=== PATIENT | female | born 1945 | race African-American/Black ===

== ENCOUNTER 2024-10-23 14:03 | Inpatient (IN) | payer MEDICARE, MEDICAID ==
[~2024-10-23] VITALS: Ht 167.6 cm; Wt 60.8 kg
[~2024-10-23 14:03] MED LIST: ACET167L14 PO; ALBU18HF2 IH; AMLO10TA80 PO; APIX5TAB PO; ATOR-2 PO; CLOP-31 MT; DEXT30SU17 PO; FLUT1DIS6 INH; FURO-151 MT; LISI40TA13 PO; LURA60TA PO; SPIR25TA PO
[2024-10-23 16:57] LABS: BASOPHILS % 0.7 % (0.0-2.0); EOSINOPHILS % 1.6 % (0.0-5.0); HEMATOCRIT. 41.9 % (36.0-48.0); HEMOGLOBIN. 13.5 g/dL (12.0-16.0); LYMPHOCYTES % 14.3 % (20.0-50.0); MEAN CORPUSCULAR HEMOGLOBIN 28.1 pg (28.0-32.0); MEAN CORPUSCULAR HGB CONC 32.3 g/dL (31.0-37.0); MEAN CORPUSCULAR VOLUME 87.1 fL (81.0-99.0); MEAN PLATELET VOLUME 9.3 fl (7.4-10.4); MONOCYTES % 7.5 % (2.0-8.0); NEUTROPHILS % 75.9 % (40.0-76.0); PLATELET 182 x1000/uL (130-400); RED BLOOD CELL COUNT 4.81 mill/uL (4.2-5.4); RED CELL DISTRIBUTION WIDTH 15.3 % (11.6-14.6); WHITE BLOOD COUNT 5.8 x1000/uL (4.5-11.0)
[2024-10-23 17:01] LABS: CHLORIDE 112 mEq/L (98-107); POTASSIUM 3.6 mEq/L (3.5-5.1); SODIUM 144 mEq/L (136-145)
[2024-10-23 17:02] LABS: CARBON DIOXIDE 24 mEq/L (21-32)
[2024-10-23 17:03] LABS: CALCIUM 9.8 mg/dL (8.7-10.4)
[2024-10-23 17:07] LABS: CREATININE 0.9 mg/dL (0.6-1.0); GLUCOSE 111 mg/dL (70-105); UREA NITROGEN BLOOD 23 mg/dL (9-23)
[2024-10-23 17:15] LABS: TROPONIN I HIGH SENSITIVITY 48 ng/L (3.0-34)
[2024-10-23] MEDS: FUROSEMIDE 40MG/4ML VIAL IVP ONE (17:53)
[2024-10-23] MEDS ORDERED: IPRATROPIUM/ALBUTEROL 0.5-3(2.5)MG/3ML NEB HHN PRN (21:15)
[2024-10-23] MEDS ORDERED: GUAIFENESIN 200MG/10ML SUGAR FREE UDC PO PRN (21:30)
[2024-10-23] MEDS ORDERED: DOCUSATE SODIUM 100MG CAPSULE PO PRN (21:30)
[2024-10-23] MEDS ORDERED: ONDANSETRON HCL 4MG/2ML INJ IV PRN (21:30)
[2024-10-23] MEDS ORDERED: MAGNESIUM/ALUMINUM HYDROXIDE/SIMETHICONE 30ML UDC PO PRN (21:30)
[2024-10-23 21:40] VITALS: BP 174/102; PULSE 78; RESP 18; TEMP 36.2512
[2024-10-23] MEDS: HYDRALAZINE 20MG/ML VIAL IV PRN (22:17)
[2024-10-23] MEDS: MELATONIN 3MG TABLET PO PRN (23:53)
[2024-10-23] MEDS: ACETAMINOPHEN 325MG TABLET PO PRN (23:53)
[2024-10-24] VITALS (9 sets, daily range): BP systolic 144–196; BP diastolic 61–115; PULSE 75–109; RESP 18–22; TEMP 36.44736–36.72516; O2SAT 96–100
[2024-10-24] MEDS: IPRATROPIUM/ALBUTEROL 0.5-3(2.5)MG/3ML NEB HHN SCH (00:45)
[2024-10-24 01:50] LABS: CREATINE KINASE MB FRACTION 1.8 ng/mL (0.5-3.6)
[2024-10-24] MEDS: HYDRALAZINE 20MG/ML VIAL IV NR (02:20)
[2024-10-24] MEDS: PANTOPRAZOLE 40MG DR TABLET PO SCH (06:28)
[2024-10-24 07:12] LABS: CARBON DIOXIDE 26 mEq/L (21-32); CHLORIDE 109 mEq/L (98-107); POTASSIUM 3.2 mEq/L (3.5-5.1); SODIUM 144 mEq/L (136-145)
[2024-10-24 07:13] LABS: CALCIUM 9.8 mg/dL (8.7-10.4)
[2024-10-24 07:15] LABS: CREATINE KINASE MB FRACTION 1.9 ng/mL (0.5-3.6)
[2024-10-24 07:18] LABS: CREATININE 0.9 mg/dL (0.6-1.0); GLUCOSE 109 mg/dL (70-105); TRIGLYCERIDE 65 mg/dL (0-150); UREA NITROGEN BLOOD 17 mg/dL (9-23)
[2024-10-24 07:19] LABS: LDL CHOLESTEROL 99 mg/dL (5-100)
[2024-10-24 07:20] LABS: CHOLESTEROL 152 mg/dL (<200); HDL CHOLESTEROL 36 mg/dL (>65); PHOSPHORUS 3.8 mg/dL (2.5-4.9); T4 FREE 1.65 ng/dL (0.89-1.76); THYROID STIMULATING HORMONE 1.52 uIU/mL (0.55-4.78)
[2024-10-24 07:21] LABS: BASOPHILS % 0.6 % (0.0-2.0); EOSINOPHILS % 1.2 % (0.0-5.0); HEMATOCRIT. 43.8 % (36.0-48.0); HEMOGLOBIN. 14.3 g/dL (12.0-16.0); LYMPHOCYTES % 9.8 % (20.0-50.0); MEAN CORPUSCULAR HEMOGLOBIN 28.3 pg (28.0-32.0); MEAN CORPUSCULAR HGB CONC 32.6 g/dL (31.0-37.0); MEAN CORPUSCULAR VOLUME 86.9 fL (81.0-99.0); MEAN PLATELET VOLUME 9.7 fl (7.4-10.4); MONOCYTES % 6.3 % (2.0-8.0); NEUTROPHILS % 82.1 % (40.0-76.0); PLATELET 186 x1000/uL (130-400); RED BLOOD CELL COUNT 5.04 mill/uL (4.2-5.4); RED CELL DISTRIBUTION WIDTH 15.4 % (11.6-14.6); WHITE BLOOD COUNT 6.9 x1000/uL (4.5-11.0)
[2024-10-24] MEDS: SPIRONOLACTONE 25MG TABLET PO SCH (09:23)
[2024-10-24] MEDS: APIXABAN 5 MG TABLET PO SCH (09:24)
[2024-10-24] MEDS: CLOPIDOGREL 75MG TABLET PO SCH (09:24)
[2024-10-24] MEDS: LISINOPRIL 40MG TABLET PO SCH (09:25)
[2024-10-24 11:20] LABS: CLARITY URINE CLEAR (CLEAR); COLOR URINE YELLOW (YELLOW); GLUCOSE URINE NEGATIVE (NEGATIVE); KETONES URINE NEGATIVE (NEGATIVE); LEUKOCYTE ESTERASE URINE TRACE (NEGATIVE); NITRITE URINE NEGATIVE (NEGATIVE); OCCULT BLOOD URINE NEGATIVE (NEGATIVE); PROTEIN URINE 2+ (NEGATIVE); SPECIFIC GRAVITY URINE 1.014 (1.005-1.030)
[2024-10-24 11:36] LABS: *AMPHETAMINES SCREEN URINE NEGATIVE (NEGATIVE); *BARBITURATES SCREEN URINE NEGATIVE (NEGATIVE); *BENZODIAZEPINES SCREEN URINE NEGATIVE (NEGATIVE); *COCAINE SCREEN URINE NEGATIVE (NEGATIVE); CANNABINOID URINE SCREEN NEGATIVE (NEGATIVE); ECSTASY MDMA SCREEN URINE NEGATIVE (NEGATIVE); METHADONE URINE SCREEN NEGATIVE (NEGATIVE); OPIATES URINE SCREEN NEGATIVE (NEGATIVE); PHENCYCLIDINE URINE SCREEN NEGATIVE (NEGATIVE); RBC URINE 0-2 /hpf (0-2); SQUAMOUS EPITHELIAL CELL URINE 2+ /lpf (RARE/1+)
[2024-10-24 11:37] LABS: BACTERIA URINE NONE SEEN; YEAST URINE NONE SEEN
[2024-10-24] MEDS: FUROSEMIDE 40MG/4ML VIAL IVP SCH (13:26)
[2024-10-24 17:08] LABS: CREATINE KINASE MB FRACTION 1.7 ng/mL (0.5-3.6)
[2024-10-24] MEDS: ATORVASTATIN CALCIUM 40MG TABLET PO SCH (21:37)
[2024-10-25] VITALS: BP 137/80; PULSE 81; RESP 18; TEMP 27.2244; O2SAT 99
[2024-10-25 04:00] VITALS: BP 119/68; PULSE 80; RESP 19; TEMP 36.72516; O2SAT 100
[2024-10-25 08:00] VITALS: BP 159/78; PULSE 89; RESP 16; TEMP 36.33624; O2SAT 95
[2024-10-25 09:00] VITALS: PULSE 88; RESP 20; O2SAT 96
[2024-10-25 10:23] VITALS: BP 152/68; PULSE 79; TEMP 95.2; O2SAT 100
== END 2024-10-25 11:00 | disposition home or self-care (01) | DRG 280 ==
LOC: ER 15:45 → EDBEDREQ 17:27 → 7EST 23:16
PROVIDERS: ADMIT Internal Medicine; ATTEND Internal Medicine
DX: I11.0 Hypertensive heart disease with heart failure (principal); I50.23 Acute on chronic systolic (congestive) heart failure; I21.A1 Myocardial infarction type 2; J44.1 Chronic obstructive pulmonary disease with (acute) exacerbation; I16.1 Hypertensive emergency; E78.9 Disorder of lipoprotein metabolism, unspecified; E11.9 Type 2 diabetes mellitus without complications; E78.5 Hyperlipidemia, unspecified; I48.91 Unspecified atrial fibrillation; F17.200 Nicotine dependence, unspecified, uncomplicated; I35.0 Nonrheumatic aortic (valve) stenosis; Z95.2 Presence of prosthetic heart valve; Z79.899 Other long term (current) drug therapy; Z79.1 Long term (current) use of non-steroidal anti-inflammatories (NSAID); Z86.718 Personal history of other venous thrombosis and embolism
CPT/HCPCS: 36415; 71045; 80048; 80061; 80305; 81003; 82550; 82553; 83036; 83735; 83880; 84100; 84145; 84439; 84443; 84484; 85025; 93005; 93970; 94640; 97165; 99291; J0360; J1940